=== PATIENT | female | born 1995 | race Caucasian/White ===

== ENCOUNTER 2021-09-20 16:26 | Outpatient (CLI) | payer OTHER, SELFPAY ==
[2021-09-20 17:04] LABS: Basophils Percent Auto 0.5 % (0.2-1.2); Eosinophils Absolute Auto 0.1 K/mm3 (0-0.3); Eosinophils Percent Auto 0.8 % (0-4.4); Hematocrit 40.7 % (37.0-47.0); Hemoglobin 14.1 g/dL (12.0-15.0); Immature Granulocyte Absolute 0.02 K/mm3 (0.00-0.031); Immature Granulocyte Percent A 0.3 % (0-0.5); Lymphocytes Absolute Auto 1.98 K/mm3 (0.9-3.2); Lymphocytes Percent Auto 24.8 % (18.3-44.2); Mean Corpuscular HGB Conc 34.6 g/dl (32-36); Mean Corpuscular Hemoglobin 29.6 pg (26-34); Mean Corpuscular Volume 85.5 fl (80-100); Mean Platelet Volume 10.1 fl (7.4-10.4); Monocytes Absolute Auto 0.5 K/mm3 (0.1-0.6); Monocytes Percent Auto 6.1 % (2.6-8.5); Neutrophils Absolute Auto 5.4 K/mm3 (1.3-6.7); Neutrophils Percent Auto 67.5 % (45.5-73.1); Platelet Count Result 221 k/mm3 (150-375); Red Blood Count 4.76 M/mm3 (4.2-5.4); Red Cell Distribution Width 12.7 % (11.5-14.5)
[2021-09-20 17:53] LABS: HIV 1/2 Ab P24 Ag Result Negative (Negative)
[2021-09-20 19:42] LABS: Hepatitis B Surface Antigen Negative (Negative)
[2021-09-20 20:10] LABS: Rubella IgG Antibody > 120.0 IU/ML
[2021-09-21 06:02] LABS: Rapid Plasma Reagin Non-Reactive (NonReactive)
[2021-09-22 16:04] LABS: CMV IgG Antibody <0.60 U/mL (<0.60)
[2021-09-24 12:03] LABS: Varicella IgG Antibody >4000.00 Index (>=165.00)
[2021-09-29 15:39] LABS: SMA 2.0 RISK VARIANT NOT DETECTED
[2021-09-29 17:22] LABS: CF Result NEGATIVE (NEGATIVE); Ethnicity NG
[2021-10-03 13:45] LABS: SMA Results Received Yes
== END 2021-09-20 16:27 | disposition home or self-care (01) ==
LOC: ANHLAB 16:34
PROVIDERS: PCP Family Medicine; Visit Provider Obstetrics & Gynecology
DX: N94.89 Other specified conditions associated with female genital organs and menstrual cycle (principal)
CPT/HCPCS: 36415; 81220; 81329; 84702; 85025; 86592; 86644; 86703; 86747; 86762; 86787; 86850; 86900; 86901; 87086; 87088; 87340; G0432

== ENCOUNTER 2021-11-01 12:24 | Outpatient (CLI) | payer OTHER, SELFPAY ==
[2021-11-17 14:25] LABS: IVFPREG? No
== END 2021-11-01 12:25 | disposition home or self-care (01) ==
LOC: ANHLAB 12:26
PROVIDERS: PCP Family Medicine; Visit Provider Obstetrics & Gynecology
DX: Z34.90 Encounter for supervision of normal pregnancy, unspecified, unspecified trimester (principal)
CPT/HCPCS: 36415; 82105; 82677; 84702; 86336

== ENCOUNTER 2022-05-14 13:38 | Observation (INO) | payer BC, SELFPAY ==
[2022-05-14 17:28] VITALS: BMI 26.6
--- NOTE | 2022-05-14 17:28 | OBADM ---
This patient, Yane Mccoy, admitted to the OB room Labor/Delivery/Recovery 104 for observation. Patient/family oriented to hospital policies and general routines including ID bracelet, bed and alarms, visiting hours, pain management, procedures, bathroom and other care routines, personal items, smoking policy, room service/diet, and visiting hours. Patient/Family are encouraged to report perceived risks to care and to ask questions if they do not understand what they are told or what they should do.
--- NOTE | 2022-05-15 15:25 | PM.OBTRLD ---
OB - Triage/Final Diagnosis Visit Information Reason for evaluation: threatened labor Comments/Additional reasons for admission: I have assessed the risk for this patient, Yane Mccoy, and determined that she would benefit from observation care.
== END 2022-05-14 16:30 | disposition home or self-care (01) ==
PROVIDERS: Admitting Provider Obstetrics & Gynecology; PCP Family Medicine; Visit Provider Obstetrics & Gynecology
DX: O47.1 False labor at or after 37 completed weeks of gestation (principal); Z3A.40 40 weeks gestation of pregnancy
CPT/HCPCS: G0378; G0379

== ENCOUNTER 2022-05-14 22:24 | Inpatient (IN) | payer BC, SELFPAY ==
[2022-05-15] VITALS (170 sets, daily range): BP systolic 77–140; BP diastolic 39–99; PULSE 87–180; RESP 16–18; TEMP 36.6–38.7; O2SAT 96–100; BMI 26.6
[2022-05-15] MEDS: fentaNYL CITRATE INJ (*CRX) 100 MCG/2 ML VIAL 50 MCG IV PUSH ×2 (01:42→02:51)
[2022-05-15 01:43] LABS: Basophils Percent Auto 0.3 % (0.2-1.2); Eosinophils Percent Auto 0.1 % (0-4.4); Hematocrit 39.8 % (37.0-47.0); Hemoglobin 13.3 g/dL (12.0-15.0); Immature Granulocyte Absolute 0.05 K/mm3 (0.00-0.031); Immature Granulocyte Percent A 0.4 % (0-0.5); Lymphocytes Absolute Auto 1.08 K/mm3 (0.9-3.2); Lymphocytes Percent Auto 7.9 % (18.3-44.2); Mean Corpuscular HGB Conc 33.4 g/dl (32-36); Mean Corpuscular Hemoglobin 30.4 pg (26-34); Mean Corpuscular Volume 91.1 fl (80-100); Mean Platelet Volume 10.8 fl (7.4-10.4); Monocytes Absolute Auto 1.1 K/mm3 (0.1-0.6); Monocytes Percent Auto 7.6 % (2.6-8.5); Neutrophils Absolute Auto 11.5 K/mm3 (1.3-6.7); Neutrophils Percent Auto 83.7 % (45.5-73.1); Platelet Count Result 205 k/mm3 (150-375); Red Blood Count 4.37 M/mm3 (4.2-5.4); White Blood Count 13.8 K/mm3 (4.5-10.0)
--- NOTE | 2022-05-15 02:14 | LDADM ---
This patient, Yane Mccoy, was admitted to Labor/Delivery/Recovery 104 on 05/14/22 at 22:24. Plans for labor, pain management and were discussed with patient. Patient/family oriented to hospital policies and general routines including ID bracelet, bed and alarms, visiting hours, pain management, procedures, bathroom and other care routines, personal items, smoking policy, room service/diet and guest tray routines, infant security routines, and visiting hours. Patient/Family are encouraged to report perceived risks to care and to ask questions if they do not understand what they are told or what they should do. See OBIX for further documentation.
[2022-05-15] MEDS: LACTATED RINGERS 1,000 ML 125 ML IV CONT ×5 (02:57→10:28)
--- NOTE | 2022-05-15 03:44 | WPDANESEPP ---
Anes - Eval Pre Procedure Procedure: labor epidural Date/Time: 05/15/22 03:44 Pre Op Diagnosis: Contractions Patient Data Age: 27 Gender: F Height: 1.63 m Weight: 70.5 kg Last Vital Signs Pulse 118 H 05/15/22 03:01 BP 119/67 05/15/22 03:01 O2 Del Method Room Air 05/15/22 02:14 Allergies Allergy/AdvReac Type Severity Reaction Status Date / Time No Known Allergies Allergy Mild Verified 05/14/22 10:13 Home Medications Medication Instructions Recorded Confirmed Type prenat.vits,beverly,[id number] 1 tablet PO DAILY 09/12/21 05/15/22 History famotidine 20 mg tablet (Pepcid) 20 mg PO DAILY PRN Acid Reflux 04/03/22 05/15/22 History Laboratory Tests 05/15/22 05/15/22 05/15/22 01:30 01:30 01:30 WBC 13.8 K/mm3 H K/mm3 (4.5-10.0) RBC 4.37 M/mm3 M/mm3 (4.2-5.4) Hgb 13.3 g/dL g/dL (12.0-15.0) Hct 39.8 % % (37.0-47.0) MCV 91.1 fl fl (80-100) MCH 30.4 pg pg (26-34) MCHC 33.4 g/dl g/dl (32-36) RDW 14.0 % % (11.5-14.5) Plt Count 205 k/mm3 k/mm3 (150-375) MPV 10.8 fl H fl (7.4-10.4) Immature Gran % (Auto) 0.4 % % (0-0.5) Neut % (Auto) 83.7 % H % (45.5-73.1) Lymph % (Auto) 7.9 % L % (18.3-44.2) [place] % (Auto) 7.6 % % (2.6-8.5) Eos % (Auto) 0.1 % % (0-4.4) Baso % (Auto) 0.3 % % (0.2-1.2) Lymph # (Auto) 1.08 K/mm3 K/mm3 (0.9-3.2) [place] # (Auto) 1.1 K/mm3 H K/mm3 (0.1-0.6) Eos # (Auto) 0.0 K/mm3 K/mm3 (0-0.3) Baso # (Auto) 0.0 K/mm3 K/mm3 (0.0-0.1) Abs Immat Gran (auto) 0.05 K/mm3 H K/mm3 (0.00-0.031) Absolute Neuts (auto) 11.5 K/mm3 H K/mm3 (1.3-6.7) Absolute Nucleated RBC 0.0 K/mm3 K/mm3 (0.0-0.012) Nucleated RBC % 0.0 % % (0.0-0.2) RPR Pending Blood Type A Positive Antibody Screen Negative Patient hx anesthesia problems: none Family hx anesthesia problems: none Results Review: All pre-operative results and documents have been reviewed as part of the pre-operative evaluation. [facility] Past Medical History Medical History BMI 20.0-20.9, adult Family History Family History Father Hypertension Grandparent Family history of malignant neoplasm of breast Mother No problems noted. Sibling No problems noted. 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
[2022-05-15] MEDS: PHENYLEPHRINE 1,000 MCG/10 ML SYRINGE 100 MCG IV PUSH ×4 (04:17→05:04)
[2022-05-15] MEDS: ONDANSETRON INJ 4 MG/2 ML VIAL IV PUSH (05:03)
[2022-05-15] MEDS: OXYTOCIN 30 UNITS/NS 500 ML 30 UNITS/500 ML BAG IV CONT (09:48)
[2022-05-15 09:50] LABS: Rapid Plasma Reagin Non-Reactive (NonReactive)
--- NOTE | 2022-05-15 11:57 | WPDHPUPDATE1 ---
History and Physical Update Update Date/Time: 05/15/22 11:57 History and Physical has been reviewed, including an updated exam of the patient. There are NO changes in the patient's condition. Risks, benefits, and alternatives have been discussed and questions answered. Patient agrees to proceed with procedure.
--- NOTE | 2022-05-15 11:57 | WPDOBADMIT ---
Obstetrics - Admit Note Admission Note: record reviewed. No pertinent additions to the history and/or any subsequent changes in the physical findings that are not consistent with the expected course of the were found. Additions to the history and/or subsequent changes in the physical findings follow. None.
--- NOTE | 2022-05-15 11:57 | PM.OBPRVD ---
OB - Delivery Note Procedure Intrapartal Events: Other (meconium stained amniotic fluid) Induction method: None Delivery augmentation: Rupture of Membranes and Pitocin Delivery monitor: External FHT and External Uterine Route of delivery: Episiotomy description: None Laceration Description: Vaginal Delivery repair: chromic Specimen: Yes Quantitative Blood Loss (ml): 300 Anesthesia type: Epidural Disposition: Floor Complications: none Narrative: Patient prepped draped usual manner for this procedure. Maternal expulsive efforts readily delivered vertex over intact perineum. Rest of baby was delivered without difficulty cord clamped cut and placenta delivered spontaneously. Cervix vagina vulva were inspected with vaginal wall laceration noted. This was rendered hemostatic and approximated using 2-0 chromic in a running interlocking manner. Uterus was well contracted. There were some small areas of oozing from minimal lacerations. Packing was placed in be removed [id number]. At this point the procedure was considered terminated with the immediate postoperative condition mother baby both excellent. [place] Baby Weeks of gestation at delivery: 40 Infant gender: Female Weight (pounds): 8 Weight (ounces): 5 presentation: vertex Placenta delivery description: Spontaneous Cord Vessel Description: 3 Vessels score one minute: 8 score five minutes: 9 AMG Delivery Billing Delivery Delivery: Delivery Charge
[2022-05-15] MEDS: OXYTOCIN 30 UNITS/NS 500 ML 30 UNITS/500 ML BAG 125 UNITS IV CONT (12:13)
[2022-05-15] MEDS: WITCH HAZEL 40 PADS 1 PAD TOPICAL (13:52)
[2022-05-15] MEDS: BENZOCAINE 20% AER SPR (*SP) 56 GM CAN 1 SPRAY TOPICAL (13:53)
[2022-05-15] MEDS: ACETAMINOPHEN 325 MG TABLET 650 MG PO (14:50)
--- NOTE | 2022-05-15 16:03 | PC.NURSE ---
[id number] Introductions were made, then consulted with patient to assess needs related to . Mother led the conversation with her?plans to feed?her infant and the?experience so far. Resources provided for inpatient and outpatient services with the feeding sheet, mom/baby guide and name written on the white board. Mother voiced understanding of information and requested assistance. Mother works well with her with encouragement and education. Encouraged understanding of the benefits of skin to skin (demonstrating unwrapping infant and placing upright on her chest), stimulating with massage touch, changing positions to encourage wakefulness, how to watch for early feeding cues, responsive feeding, feeding on demand (aiming for 8-12 times in 24 hours, about every 2-3 hours), milk production, building/maintaining a milk supply, duration of feeding, signs of adequate intake/output and how to record on the feeding sheet. Reviewed positioning and ear, shoulder, hip alignment, supporting the breast to facilitate a deep latch, asymmetrical latch (off-center), leading with the chin with a big, open, wide gape and body close to mother. Infant latched optimally to the left breast in football position. Education given to mother of how to visualize suck/swallow ratios and listen for drinking at the breast. was able to maintain latch without discomfort to mother. Nipple care reviewed with optimal latch and good positioning. Reminding mother of comfort measures of healing with a warm and wet washcloth to rinse breast, then leave open to air-dry as needed. Reviewed positioning and ear, shoulder, hip alignment, supporting the breast to facilitate a deep latch, asymmetrical latch (off-center), leading with the chin with a big, open, wide gape and body close to mother. Infant latched optimally to the right breast in football position. Suck/swallow ratios were visualized and heard. Reviewed good handwashing when or touching the breast/nipples to prevent infection. Resources used to facilitate learning were used with the visual handouts, tool, mom and baby guide. Mother voiced understanding of skin to skin, stimulating with massage touch, responsive feedings, talking to infant to encourage if it has been 2 -2.5 hours since the start of the last , to call if infant does not latch, or if there is discomfort with . Mother voiced understanding of information, demonstrated learning and will call if there is a request for assistance. Reported to the primary RN.
[2022-05-15] MEDS: IBUPROFEN SUSPENSION 200 MG/10 ML UDC 600 MG PO (20:25)
[2022-05-15] MEDS: BENZOCAINE/MENTHOL (*BKC) 18 EA LOZENGE 1 LOZENGE PO (22:58)
[2022-05-16 00:08] VITALS: BP 106/64; PULSE 72; RESP 18; TEMP 36.6; O2SAT 98
[2022-05-16 04:41] LABS: Hematocrit 34.8 % (37.0-47.0); Hemoglobin 11.6 g/dL (12.0-15.0)
[2022-05-16 04:42] VITALS: BP 96/62; PULSE 78; RESP 18; TEMP 36.6; O2SAT 99
[2022-05-16 07:55] VITALS: BP 107/74; PULSE 91; RESP 16; TEMP 36.7; O2SAT 99
[2022-05-16] MEDS: LORATADINE 10 MG TABLET PO (08:14)
[2022-05-16] MEDS: IBUPROFEN SUSPENSION 200 MG/10 ML UDC 600 MG PO ×3 (08:15→22:30)
--- NOTE | 2022-05-16 08:58 | WPDANLDPN2 ---
Anes-Prog Note L&D Date/Time: 05/16/22 08:58 Comfortable throughout: labor and delivery Neuraxial method: epidural Epidural/Spinal procedure site: clean & non-tender Neuro status: Neuro function grossly intact. Cardiovascular status: normal Respiratory status: normal Airway patency: baseline Mental status: baseline Post-Op hydration status: normal Vital Signs: Last Vital Signs Temp 98 F 05/16/22 04:42 Pulse 78 05/16/22 04:42 Resp 18 05/16/22 04:42 BP 96/62 L 05/16/22 04:42 Pulse Ox 99 05/16/22 04:42 O2 Del Method Room Air 05/15/22 20:45 Pain score (VAS): 0 Post-procedural complaints: none Patient feedback: Patient satisfied with anesthetic care.
[2022-05-16 21:00] VITALS: BP 126/76; PULSE 91; RESP 18; TEMP 37.1; O2SAT 98
[2022-05-16] MEDS: DEXTROMETHORPHAN POLISTIREX 60 MG/10 ML SYRINGE PO (22:30)
--- NOTE | 2022-05-17 07:28 | PM.OBDSVD ---
DS: Admitting Diagnosis Discharge Date 05/17/2022 Admitting Diagnosis DS: Discharge Diagnosis Discharge Diagnosis (1) , delivered: Code(s): O80 - Encounter for full-term uncomplicated delivery Status: Acute OB - DS: Summary OB Procedures : None OB Procedures Intrapartum: Spontaneous Vag Delivery OB Procedures: : None Time Spent with Patient Time attestation: Total time spent providing and/or coordinating discharge services: DS: Data Data Completed and Pending Pending studies at discharge: Pending at discharge 05/15/22 11:42 Surgical [PTH] Routine Discharge Plan Discharge Discharging Clinician: Jonatan Quiroz Patient Disposition: Home, Self-Care Activity: as tolerated Diet: as tolerated Patient Instructions: Antibiotic Form Stand Alone Forms: General Discharge Information Follow-up/Referrals: Jonatan Quiroz MD [Physician] - 3 Weeks Discharge Medications: New azithromycin 250 mg tablet See Rx Instructions .ROUTE .COMPLEX Qty: 6 0RF Rx Instructions: For 250 mg dose pack: take 500 mg today (day 1), then 250 mg for 4 days (days 2-5) ibuprofen 100 mg/5 mL Suspension 600 mg PO Q6H PRN (Reason: Pain Rated 1-3) Qty: 30 0RF Continued famotidine [Pepcid] 20 mg tablet 20 mg PO DAILY PRN (Reason: Acid Reflux) prenat.vits,beverly,[id number] Tablet 1 tablet PO DAILY Date of admission: 05/14/22 22:24 Primary Care Provider: Kuldip Arredondo Admitting Provider: Jonatan Quiroz Attending physician on admission: Jonatan Quiroz Condition: Stable
[2022-05-17 07:50] VITALS: BP 113/68; PULSE 90; RESP 16; TEMP 37.7; O2SAT 99
[2022-05-17] MEDS: LORATADINE 10 MG TABLET PO (08:34)
[2022-05-17] MEDS: IBUPROFEN SUSPENSION 200 MG/10 ML UDC 600 MG PO (08:34)
--- NOTE | 2022-05-17 10:21 | PC.NURSE ---
Patient viewed the discharge video Mother & Baby Care, The First Two Weeks . Patient was given the opportunity and encouraged to ask questions. Patient verbalized understanding of information shared and has been given the mother/baby guide for home reference.
[2022-05-17] MEDS: DEXTROMETHORPHAN POLISTIREX 60 MG/10 ML SYRINGE PO (10:47)
--- NOTE | 2022-05-17 12:14 | PC.NURSE ---
[id number] Mother led the conversation with her experience and plan to feed her so far and her ability to continue with the plan of attempting to breastfeed, pump, supplement to feed infant. Mother states she didn't pump last night and bottle fed through the night. Reviewed milk production with effectively or pumping to protect the milk supply. Mother requested a pump flange assessment. We discussed how her needs may cell changer the next few days. Reminded parents to use good handwashing technique to prevent infection. Mother is feeding appropriately for growth of infant and understands stimulating to eat if needed. Infant has had appropriate feedings in the last 24 hours meets the outcomes for weight, output and jaundice at this time. Mother states she is confident to continue to attempt effectively , pumping and supplementing with pumped breastmilk or formula for her infant at home. Reinforced understanding of milk production, transition of milk, signs of adequate intake, transition of stool, prevention/relief of engorgement, responsive watching for feeding cues, the different methods of stimulating to breastfeed 2-3 hours after the start of the last feeding, community resources, medication information reviewed per [facility] and when to call a provider using the resource of the mom and baby guide/[facility] website. Mother voiced understanding of the education shared. [phone] Mother pumped 10mls of breastmilk to feed to her after the next attempt to the breast. Flange fit was assessed and 24 mm is adequate. We discussed how the breast, flanges and needs may cell changer the next few days. Mother voiced when to call for assistance and denies any additional assistance or education at this time. Mother states she has a resource [facility] [facility] that she can contact for assistance and mother was reminded of [place]'s outpatient resources as well. Reported to the primary RN.
[2022-05-18 11:35] VITALS: BP 117/78; PULSE 92; RESP 18; TEMP 37.3; O2SAT 100
== END 2022-05-17 12:53 | disposition home or self-care (01) | DRG 806 ==
LOC: ANHLDR 05-15 00:38 → ANHOB2 05-15 14:17
PROVIDERS: Obstetrics & Gynecology; Admitting Provider Obstetrics & Gynecology; PCP Family Medicine; Visit Provider Obstetrics & Gynecology
DX: O77.0 Labor and delivery complicated by meconium in amniotic fluid (principal); O71.4 Obstetric high vaginal laceration alone; Z37.0 Single live birth; O75.2 Pyrexia during labor, not elsewhere classified; Z3A.40 40 weeks gestation of pregnancy
CPT/HCPCS: 36415; 85014; 85018; 85025; 86592; 86850; 86900; 86901; 88307; A9270; J2370; J2405; J2590; J2795; J3010; J7120

== ENCOUNTER 2022-08-15 14:16 | Outpatient (CLI) | payer BC, SELFPAY ==
--- NOTE | 2022-08-17 14:39 | WPDHOLTEREM ---
Holter/Event Monitor Holter/Event Monitor Date of procedure: 08/15/22 Holter/Event Procedure: 24 Hr Holter Monitor Indications: Bradycardia Conclusion: 1. 24 hour holter monitor on 08/15/22. 2. Underlying rhythm is sinus rhythm. HR range 40-138 bpm; average HR 68 bpm. 3. There are 2 premature supraventricular complexes. No supraventricular tachycardia. 4. No premature ventricular complexes. No ventricular tachycardia. 5. No sinoatrial or atrioventricular blocks. No significant pauses greater than 2 seconds. 6. Patient reports symptoms of headache, lightheadedness, and sternum pain which demonstrate sinus rhythm, HR range 67-82 bpm.
== END 2022-08-15 14:17 | disposition home or self-care (01) ==
LOC: ANHCARD 14:18
PROVIDERS: PCP Family Medicine; Visit Provider Nurse Practitioner Family
DX: R00.1 Bradycardia, unspecified (principal)
CPT/HCPCS: 93225; 93226

== ENCOUNTER 2023-04-26 15:15 | Outpatient (RCR) | payer BC, SELFPAY ==
--- NOTE | 2023-03-20 16:22 | OPREHPOC ---
Outpatient Therapy Plan of Care This is a Multidisciplinary Plan of Care that may contain components documented by all disciplines (PT, OT, and ST.) PT Problem 1 PT Problem #1 Knowledge Deficit PT Goal 1 Goal Pt to be IND with issued HEP Target Visit 8 PT Problem 2 PT Problem #2 Pain PT Goal 1 Goal Pt to report no pelvic pain in the last week. Target Visit 8 PT Goal 2 Goal Pt to report 75% improvement in overall symptoms. Target Visit 8 PT Problem 3 PT Problem #3 Impaired Strength PT Goal 1 Goal pt to improve hip strength to grossly 4+/5 Target Visit 8 PT Goal 2 Goal Pt to be able to hold supine 90-90 position for 30s. Target Visit 8 PT Problem 4 PT Problem #4 Impaired Functional Mobil PT Goal 1 Goal Pt to be able to lift and carry 20lb from ground level without an increase in symptoms Target Visit 8
--- NOTE | 2023-03-20 16:22 | PTOPEVAL1 ---
Assessment and note entered by Tracy Rivera, PT, DPT Evaluation Information Assessment Status Evaluation Diagnosis anterior rib pain Subjective Information Pt reports hip, L foot, R jaw, and R anterior rib pain. Pt reports upper anterior rib pain that started early in her about a year and a half ago. She is currently 10 months post . She reports intermittent pain, it increases with coughing, bending forward, and with palpation. Reported Pain Level Pain Score 0: Self Report Assessment PT Clinical Summary Yane presents to therapy today for her initial evaluation with a diagnosis of rib pain. Today she demonstrates hypermobility throughout her spinal and BLEs. She demonstrates decreased hip and pelvis stability as well as decreased core strength. Skilled therapy services are indicated to improve functional stability, body mechanics, and functional mobility. Plan of Care Interventions Gait Training,Manual Therapy,Neuro Re-education, Patient/Caregiver Educati,Therapeutic Activities, Therapeutic Exercise PT Services Indicated Yes Treatment Frequency and 2x/wk for 8 visits Duration These treatments will address the objective and functional deficits as defined above. The patient will be advanced safely and appropriately in order for the patient to progress towards his/her prior level of function. Additional exercises will be introduced and as well as a comprehensive home exercise program upon discharge, if needed, ?to ensure carryover of functional gains achieved in the clinic. This treatment plan has been reviewed and agreement upon by the patient.
--- NOTE | 2023-04-16 16:51 | PCPTNOTE ---
Patient called to cancel due to illness.
--- NOTE | 2023-04-18 13:42 | PCPTNOTE ---
Patient called & cancelled scheduled appointment this date due to being ill. She has been rescheduled.
--- NOTE | 2023-04-26 16:10 | PTOPDC ---
Assessment and note entered by Tracy Rivera, PT, DPT Evaluation Information Assessment Status Discharge Diagnosis anterior rib pain Subjective Information Pt states thinks are going well overall. She states she has not had much pain. She reports a little discomfort when coughing but not with day to day tasks. Reported Pain Level Pain Score 0: Self Report Assessment PT Clinical Summary Yane presents to therapy today for her progress report following 8 visits of skilled therapy to treat her diagnosis of rib pain. Today she reports no pain in the last week and no pain with functional mobility. She has met all of her therapy goals and no longer requires skilled therapy services. She will be discharged at this time. Plan of Care PT Services Indicated No
== END 2023-04-29 08:09 | disposition home or self-care (01) ==
LOC: ANHGOSHPT 15:15
PROVIDERS: PCP Family Medicine; Visit Provider Nurse Practitioner Family
DX: M94.0 Chondrocostal junction syndrome [Tietze] (principal)
CPT/HCPCS: 97110; 97161; 97530

== ENCOUNTER 2023-05-13 12:19 | Emergency (ER) | payer BC, SELFPAY ==
[2023-05-13 12:54] VITALS: BP 104/79; PULSE 96; RESP 18; TEMP 37.4; O2SAT 98
--- NOTE | 2023-05-13 13:34 | ED.URI ---
HPI - URI/Sore Throat General Chief Complaint: Upper Respiratory Infection Stated Complaint: Sore Throat;Congestion Time Seen by Provider: 05/13/23 13:26 Patient presents today complaining of a 2 day history of sore throat and mild congestion. Denies any additional symptoms. Currently rates her pain 2/10 and has been taking DayQuil with some relief. Denies any known sick contacts. Source: patient and RN notes reviewed Mode of arrival: ambulatory Limitations: no limitations Related Data Home Medications Medication Instructions Recorded Confirmed No Home Medications 05/13/23 05/13/23 Allergies Allergy/AdvReac Type Severity Reaction Status Date / Time No Known Allergies Allergy Mild Verified 05/13/23 12:48 Review of Systems Review of Systems: CONSTITUTIONAL: Denies body aches, fever, chills, or sweats. EYES: Denies visual changes, redness, or discharge. ENT: Denies rhinorrhea, or otalgia.+ sore throat, mild congestion CARDIOVASCULAR: Denies chest pain, palpitations, or edema. RESPIRATORY: Denies cough or dyspnea. GASTROINTESTINAL: Denies abdominal pain, nausea, vomiting, or diarrhea. GENITOURINARY: Denies dysuria or hematuria. SKIN: Denies rash, itching, or wounds. MUSCULOSKELETAL: Denies back pain, joint pain, or myalgia. NEUROLOGIC: Denies headache, numbness, tingling, or weakness. PSYCH: Denies depression or anxiety. [facility] Past Medical History Medical History BMI 20.0-20.9, adult BMI 22.0-22.9, adult Family History Family History Father Hypertension Grandparent Family history of malignant neoplasm of breast Mother No problems noted. Sibling No problems noted. 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 Please see nursing chart for further information. There is no relevant family history pertinent to the presenting complaint Exam Narrative: GENERAL: Well-appearing, well-nourished, and in no acute distress. HEAD: Normocephalic, atraumatic. EYES: EOMI. No redness or drainage. Conjunctivae normal. ENT: Mucous membranes pink and moist. Nares clear. No rhinorrhea. TMs normal bilaterally. Throat mildly erythematous without edema or exudate. Uvula midline. NECK: Normal AROM. Supple. No lymphadenopathy. CHEST: No respiratory distress. Clear to auscultation. HEART: Regular rate and rhythm. No murmur appreciated. EXTREMITIES: Normal range of motion. No edema. SKIN: Warm, dry, no rash. Capillary refill normal. Normal skin turgor. NEURO: No focal deficits. Alert and oriented x3. Gait steady. PSYCH: Normal affect. No signs of depression or anxiety. Course Course Level of Care: Express Care Visit Vital Signs Vital signs: Vital Signs Temperature 99.3 F 05/13/23 12:54 Pulse Rate 96 05/13/23 12:54 Respiratory Rate 18 05/13/23 12:54 Blood Pressure 104/79
== END 2023-05-13 13:44 | disposition home or self-care (01) ==
PROVIDERS: Emergency Provider Nurse Practitioner; PCP Family Medicine
DX: J02.9 Acute pharyngitis, unspecified (principal)
CPT/HCPCS: 87081; 87880; 99213; G0463

== ENCOUNTER 2023-05-19 09:15 | Emergency (ER) | payer BC, SELFPAY ==
[2023-05-19 09:21] VITALS: BP 118/74; PULSE 71; RESP 16; TEMP 36.6; O2SAT 100
--- NOTE | 2023-05-19 09:32 | ED.SKABFB ---
HPI - Skin/Abscess/Foreign Bdy General Chief complaint: Skin/Abscess/Foreign Body Stated complaint: Hives all over Time Seen by Provider: 05/19/23 09:27 Source: patient and RN notes reviewed Mode of arrival: ambulatory Limitations: no limitations History of Present Illness HPI narrative: Patient presents today with scattered hives that started last night around 8:00 p.m.. States the started on her eyelids and has spread to her ears, palms of her hands, ankles, knees. Denies shortness of breath, difficulty swallowing, scratchy throat, lip swelling. She tried Claritin last night without relief. She denies any new exposures, household products, medications, plantar animal exposures. She had recently has been ill with a viral pharyngitis that has been improving. Related Data Allergies Allergy/AdvReac Type Severity Reaction Status Date / Time No Known Allergies Allergy Mild Verified 05/19/23 09:18 Review of Systems Review of Systems: CONSTITUTIONAL: Denies body aches, fever, chills, or sweats. EYES: Denies visual changes, redness, or discharge. ENT: Denies rhinorrhea, congestion, sore throat, or otalgia. CARDIOVASCULAR: Denies chest pain, palpitations, or edema. RESPIRATORY: Denies cough or dyspnea. GASTROINTESTINAL: Denies abdominal pain, nausea, vomiting, or diarrhea. GENITOURINARY: Denies dysuria or hematuria. SKIN:+ hives MUSCULOSKELETAL: Denies back pain, joint pain, or myalgia. NEUROLOGIC: Denies headache, numbness, tingling, or weakness. PSYCH: Denies depression or anxiety. [facility] Past Medical History Medical History BMI 20.0-20.9, adult BMI 22.0-22.9, adult Family History Family History Father Hypertension Grandparent Family history of malignant neoplasm of breast Mother No problems noted. Sibling No problems noted. 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 Please see nursing chart for further information. There is no relevant family history pertinent to the presenting complaint Exam Narrative: GENERAL: Well-appearing, well-nourished, and in no acute distress. HEAD: Normocephalic, atraumatic. EYES: EOMI. No redness or drainage. Conjunctivae normal. ENT: Mucous membranes pink and moist. Nares clear. No rhinorrhea. Throat normal. Uvula midline. NECK: Normal AROM. CHEST: No respiratory distress. Clear to auscultation. HEART: Regular rate and rhythm. No murmur appreciated. EXTREMITIES: Normal range of motion. No edema. SKIN: Warm, dry. Capillary refill normal. Normal skin turgor. Tiny urticaria rash that has coalesced and patches to the bilateral ankles, left knee, bilateral [place], left ear, bilateral eyelids, forehead. No facial swelling noted. NEURO: No focal deficits. Alert and oriented x3. Gait steady. PSYCH: Normal affect. No signs of depression or anxiety. Course
== END 2023-05-19 09:37 | disposition home or self-care (01) ==
PROVIDERS: Emergency Provider Nurse Practitioner; PCP Family Medicine
DX: L50.9 Urticaria, unspecified (principal)
CPT/HCPCS: 99213; G0463

== ENCOUNTER 2023-08-05 19:47 | Emergency (ER) | payer BC, SELFPAY ==
--- NOTE | ~2023-08-05 | US_ITS ---
Pelvic ultrasound. Clinical History: First trimester , vaginal bleeding Technique: Realtime transabdominal and transvaginal scanning of the pelvis was performed. Color flow Doppler and Doppler spectral analysis were performed. Findings: The uterus is anteverted. The endometrial stripe is diffusely thickened to 18 mm, relative ly hyperechoic. There is a probable mildly irregular gestational sac at the lower uterine segment, or possibly cervix, with estimated gestational age of 5 weeks 5 days based on average sac diameter of 1 cm. No well-formed pole evident. The right ovary measures 3.2 x 1.6 x 2.1 cm. No significant right ovarian or adnexal mass is seen. The left ovary measures 2.0 x 1.2 x 1.5 cm. No significant left ovarian or adnexal mass is seen. There is no evidence of free fluid in the cul de sac. Impression: Thickened endometrial stripe with early gestational sac at the lower uterine segment or possibly cerv ix, with estimated gestational age of 5 weeks 5 days by sac diameter. Appearance overall suggests abo rtion in progress. Early normal felt to be relatively unlikely. Correlate clinically. Otis nued follow-up with serial beta hCG, and repeat ultrasound as warranted, is advised. Reviewed, dictated and finalized at location M. Impression: Thickened endometrial stripe with early gestational sac at the lower uterine se gment or possibly cervix, with estimated gestational age of 5 weeks 5 days by s ac diameter. Appearance overall suggests in progress. Early normal pre gnancy felt to be relatively unlikely. Correlate clinically. Continued follow-u p with serial beta hCG, and repeat ultrasound as warranted, is advised.
[2023-08-05 19:48] VITALS: BP 128/67; PULSE 76; RESP 20; TEMP 36.8; O2SAT 100
[2023-08-05 20:14] LABS: Basophils Percent Auto 0.5 % (0.2-1.2); Eosinophils Absolute Auto 0.1 K/mm3 (0-0.3); Eosinophils Percent Auto 0.6 % (0-4.4); Hematocrit 40.3 % (37.0-47.0); Hemoglobin 13.5 g/dL (12.0-15.0); Immature Granulocyte Absolute 0.02 K/mm3 (0.00-0.031); Immature Granulocyte Percent A 0.2 % (0-0.5); Lymphocytes Absolute Auto 1.96 K/mm3 (0.9-3.2); Lymphocytes Percent Auto 22.5 % (18.3-44.2); Mean Corpuscular HGB Conc 33.5 g/dl (32-36); Mean Corpuscular Hemoglobin 29.6 pg (26-34); Mean Corpuscular Volume 88.4 fl (80-100); Mean Platelet Volume 10.2 fl (7.4-10.4); Monocytes Absolute Auto 0.4 K/mm3 (0.1-0.6); Monocytes Percent Auto 4.4 % (2.6-8.5); Neutrophils Absolute Auto 6.3 K/mm3 (1.3-6.7); Neutrophils Percent Auto 71.8 % (45.5-73.1); Platelet Count Result 233 k/mm3 (150-375); Red Blood Count 4.56 M/mm3 (4.2-5.4); Red Cell Distribution Width 13.4 % (11.5-14.5); White Blood Count 8.7 K/mm3 (4.5-10.0)
[2023-08-05 20:23] LABS: Alanine Aminotransferase 17 U/L (6-35); Albumin Level 4.8 g/dL (3.5-5.1); Alkaline Phosphatase 47 U/L (38-126); Anion Gap 10 mmol/L (4-12); Aspartate Amino Transferase 23 U/L (14-36); Bilirubin,Total 0.8 mg/dL (0.2-1.3); Blood Urea Nitrogen 17 mg/dL (7-17); Calcium 9.4 mg/dL (8.4-10.2); Carbon Dioxide 22 mmol/L (22-30); Chloride 106 mmol/L (98-107); Estimated CRCL calculation 88 ml/min; Estimated Glomerular Filt Rate > 60; Glucose 135 mg/dL (65-110); Potassium 3.5 mmol/L (3.4-5.0); Sodium 138 mmol/L (137-145)
[2023-08-05 20:24] LABS: INR 1.1; Prothrombin Time 14.3 Seconds (11.1-14.7)
--- NOTE | 2023-08-05 21:07 | ED.PREGNANCY ---
HPI - General Chief complaint: Vaginal Bleeding Stated complaint: vaginal bleeding, 8-10 weeks Time Seen by Provider: 08/05/23 20:22 Source: patient Mode of arrival: ambulatory Limitations: no limitations History of Present Illness HPI Narrative: This is a 28 year old female that presents to the ER for vaginal bleeding. Reports she is about 10 weeks . She started to have spotting this morning which has progressed to heavy bleeding with clots tonight which prompted her to be seen. Her OB is Dr. Quiroz. She has not had an US yet this . Denies fevers or vomiting. Related Data Home Medications Medication Instructions Recorded Confirmed docosahexaenoic acid 200 mg mg PO 07/16/23 07/16/23 capsule ( DHA) Allergies Allergy/AdvReac Type Severity Reaction Status Date / Time No Known Allergies Allergy Mild Verified 07/16/23 15:47 Review of Systems Review of Systems: CONSTITUTIONAL: Denies fever GASTROINTESTINAL: Denies abdominal pain, nausea, vomiting All systems reviewed & are unremarkable except as noted in HPI and below PMFSH Past Medical History Medical History (Updated 08/06/23 @ 02:03 by Tari Mcnair PA-C) BMI 20.0-20.9, adult BMI 22.0-22.9, adult Family History Family History Father Hypertension Grandparent Family history of malignant neoplasm of breast Mother No problems noted. Sibling No problems noted. 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 HEAD: Normocephalic, atraumatic. EYES: EOMI. CHEST: No respiratory distress. HEART: Regular rate EXTREMITIES: Normal range of motion. No edema. SKIN: Warm, dry, no rash. NEURO: No focal deficits. Alert and oriented x3. PSYCH: Normal mood and affect PELVIC: Normal external genitalia. Moderate amount of bright red blood in the vaginal vault. Passing clots and tissue Course Course Emergency Course: Patient updated on workup and agrees with plan of care Vital Signs Vital signs: Vital Signs Temperature 98.2 F 08/05/23 19:48 Pulse Rate 76 08/05/23 19:48 Respiratory Rate 20 08/05/23 19:48 Blood Pressure 128/67 08/05/23 19:48 Pulse Oximetry 100 08/05/23 19:48 Oxygen Delivery Room Air 08/05/23 19:48 Temperature 98.2 F 08/05/23 19:48 Pulse Rate 76 08/05/23 19:48 Respiratory Rate 08/05/23 19:48 Blood Pressure 128/67 08/05/23 19:48 Pulse Oximetry 100 08/05/23 19:48 Oxygen Delivery Room Air 08/05/23 19:48 MDM - OB/Uterine Contractions MDM Narrative Medical decision making narrative: Patient presents the emergency department for bleeding in first-trimester . She is afebrile and nontoxic appearing. Her vitals are stable. Hemoglobin is normal. Her quantitative beta-hCG is 12,741. Ultrasound shows a gestational sac, but no pole. Patient updated on workup and agrees with plan of care. Will be given order for repeat beta-hCG an
--- NOTE | 2023-08-05 22:44 | PC.NURSE ---
Assumed care of pt from RONAL Robison. Pt resting in bed awaiting US. Call light within reach.
--- NOTE | 2023-08-05 23:02 | PC.NURSE ---
pt to US at this time.
[2023-08-06 02:14] VITALS: BP 122/71; PULSE 72; RESP 19; O2SAT 100
== END 2023-08-06 02:16 | disposition home or self-care (01) ==
PROVIDERS: Emergency Provider Physician Assistant; PCP Family Medicine
DX: O20.0 Threatened abortion (principal); Z3A.01 Less than 8 weeks gestation of pregnancy
CPT/HCPCS: 36415; 76801; 76817; 80053; 84702; 85025; 85461; 85610; 85730; 86850; 86900; 86901; 99284

== ENCOUNTER 2023-08-07 10:49 | Outpatient (CLI) | payer BC, SELFPAY ==
--- NOTE | ~2023-08-07 | US_ITS ---
EXAMINATION: US OB <=14 wk fetus w TV DATE: 08/07/2023 11:20 INDICATION: Threatened . TECHNIQUE: Real-time transabdominal and transvaginal pelvic ultrasound was performed. COMPARISON: Ultrasound 08/05/2023 FINDINGS: TRANSABDOMINAL ULTRASOUND: The uterus measures 8.5 x 5.9 x 6.1 cm. TRANSVAGINAL ULTRASOUND: There are two 6 mm hypoechoic masses in the endometrial complex. The right ovary measures 2.6 x 2.7 x 2.2 cm. The left ovary measures 1.6 x 1.2 x 3.0 cm. There is no free fluid in the pelvis. IMPRESSION: 1. Two small hypoechoic masses in the endometrial complex, new from 08/05/23, most likely hematomas. The cyst in the endocervical canal seen on 08/05/2023 is no longer visible, most likely spontaneous ab ortion. Ectopic is not excluded. Correlate with quantitative beta-hCG. Reviewed, dictated and finalized at location A. IMPRESSION: 1. Two small hypoechoic masses in the endometrial complex, new from 08/05/23, m ost likely hematomas. The cyst in the endocervical canal seen on 08/05/2023 is n o longer visible, most likely spontaneous . Ectopic is not ex cluded. Correlate with quantitative beta-hCG.
== END 2023-08-07 10:50 ==
LOC: MICIMG 10:50
PROVIDERS: PCP Family Medicine; Visit Provider Obstetrics & Gynecology
DX: O20.0 Threatened abortion (principal)
CPT/HCPCS: 76801; 76817

== ENCOUNTER 2024-03-06 15:15 | Outpatient (CLI) | payer BC, SELFPAY ==
--- NOTE | ~2024-03-06 | US_ITS ---
EXAMINATION: US OB <=14 wk fetus w TV DATE: 03/06/2024 15:39 INDICATION: Encounter for supervision of normal . TECHNIQUE: Real-time transabdominal and transvaginal pelvic ultrasound was performed. COMPARISON: Ultrasound 08/07/2023 FINDINGS: TRANSABDOMINAL ULTRASOUND: The uterus measures 10.2 x 7.2 x 6.1 cm. TRANSVAGINAL ULTRASOUND: There is an intrauterine gestational sac. A yolk sac is identified. The fet al crown rump length measures 8 mm, which correlates with an estimated gestational age of 6 weeks and 5 day(s) (+/-) 4 day(s). heart motion is identified measuring 143 beats per minute (bpm) by M- mode Doppler. There is a 1.0 x 1.0 x 1.2 cm subchorionic hematoma. The ovaries are not visualized. Th ere is no free fluid in the pelvis. IMPRESSION: 1. Single living intrauterine gestation with estimated date of delivery of 10/25/2024. 2. Small subchorionic hematoma. Reviewed, dictated and finalized at location A. BOOK WRITER IMPRESSION: 1. Single living intrauterine gestation with estimated date of delivery of 10/16. 2. Small subchorionic hematoma.
== END 2024-03-06 15:16 | disposition home or self-care (01) ==
LOC: GOSHIMG 15:15
PROVIDERS: PCP Family Medicine; Visit Provider Obstetrics & Gynecology
DX: Z34.90 Encounter for supervision of normal pregnancy, unspecified, unspecified trimester (principal)
CPT/HCPCS: 76801; 76817

== ENCOUNTER 2024-03-07 19:40 | Emergency (ER) | payer BC, SELFPAY ==
[2024-03-07 19:45] VITALS: BP 104/70; PULSE 138; RESP 15; TEMP 36.8; O2SAT 100
[2024-03-07] MEDS: SODIUM CHLORIDE 0.9% IV 1,000 ML 999 ML IV CONT (20:00)
[2024-03-07] MEDS: ONDANSETRON INJ 4 MG/2 ML VIAL IV PUSH ×2 (20:00→22:58)
--- NOTE | 2024-03-07 20:08 | ED_ITS ---
HPI - General Adult General Chief complaint: Nausea/Vomiting/Diarrhea Stated complaint: nausea/ vomitting x7 weeks Time Seen by Provider: 03/07/24 19:47 History of Present Illness HPI narrative: 28-year-old female presents emergency department for evaluation for nausea vomiting and diarrhea. Patient is approximately 7 weeks . Patient has had some issues with morning sickness with this . Patient states she does have some sick contacts and there multiple family members who had similar illness last week. Patient believes she still has a viral illness and that her morning sickness is making this worse. Patient denies any vaginal bleeding vaginal discharge denies any associated abdominal pain. Patient's primary complaint is that she cannot keep any liquids down. Patient follows up with Dr. Quiroz Related Data Home Medications ?Medication ?Instructions ?Recorded ?Confirmed ?Last Taken ?Type docosahexaenoic acid 200 mg mg PO 07/16/23 02/17/24 Unknown History capsule ( DHA) Allergies Allergy/AdvReac Type Severity Reaction Status Date / Time No Known Allergies Allergy Mild Verified 03/07/24 19:40 Review of Systems 2 Review of Systems: All systems reviewed & are unremarkable except as noted in HPI and below PMFSH Past Medical History Medical History BMI 20.0-20.9, adult BMI 22.0-22.9, adult Family History Family History Father Hypertension Grandparent Family history of malignant neoplasm of breast Mother No problems noted. Sibling No problems noted. 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 HEAD: normocephalic, atraumatic. EYES: PERRLA/EOMI, conjunctivae clear. NOSE: Normal no drainage EARS:TMS clear with good light reflex. THROAT: Pharynx clear, no exudate. NECK: Supple. No adenopathy, no masses. RESPIRATORY: Airway patent, respirations nonlabored. Clear to auscultation bilaterally, no rales, rhonchi, wheezing. CARDIOVASCULAR: Regular rate and rhythm without murmurs rubs or gallops. ABDOMINAL: Soft, nontender, nondistended, normal bowel sounds MUSCULOSKELETAL: Moves all extremities. Strength/ROM intact, No edema, No calf tenderness. NEURO: Alert. Cranial nerves II through XII intact. grossly intact SKIN: Warm, dry. Normal Color Course Vital Signs Vital signs: Vital Signs Temperature 98.3 F 03/07/24 19:45 Pulse Rate 138 H 03/07/24 19:45 Respiratory Rate 15 03/07/24 19:45 Blood Pressure 104/70 03/07/24 19:45 Pulse Oximetry 100 03/07/24 19:45 Temperature 100.1 F H 03/07/24 23:01 Pulse Rate 83 03/07/24 23:01 Respiratory Rate 20 03/07/24 23:01 Blood Pressure 99/68 L 03/07/24 23:01 Pulse Oximetry 99 03/07/24 23:01 Medical Decision Making [facility] Narrative Medical decision making narrative: 28-year-old female presents emergency department for evaluation for persistent nausea vomiting and diarrhea. Patient is approximately 7 weeks . On re-evaluation patient states that she does feel improved. Patient is afebrile with no leukocytosis and hemoglobin of 14. No acute abnormalities on the patient's CMP and while UA did have some red blood cells and white blood cells patient denies any urinary symptoms, urine culture was ordered. Patient was negative for influenza RSV and for COVID. Patient family were updated on the results of the workup they are comfortable the plan for discharge and close follow-up. Differential Diagnosis Differential Diagnosis: COVID, RSV, influenza, UTI, dehydration, morning sickness Vital Signs Vital Signs: Vital Signs Temperature 98.3 F 03/07/24 19:45 Pulse Rate 138 H 03/07/24 19:45 Respiratory Rate 15 03/07/24 19:45 Blood Pressure 104/70 03/07/24 19:45 Pulse Oximetry 100 03/07/24 19:45 Temperature 100.1 F H 03/07/24 23:01 Pulse Rate 83 03/07/24 23:01 Respiratory Rate 20 03/07/24 23:01 Blood Pressure 99/68 L 03/07/24 23:01 Pulse Oximetry 99 03/07/24 23:01 Lab Data 03/07/24 20:03 03/07/24 20:03 Labs: Lab Results 03/07/24 03/07/24 03/07/24 Range/Units 20:03 20:29 20:31 WBC 8.8 (4.5-10.0) K/mm3 RBC 4.75 (4.2-5.4) M/mm3 Hgb 14.1 (12.0-15.0) g/dL Hct 40.5 (37.0-47.0) % MCV 85.3 (80-100) fl MCH 29.7 (26-34) pg MCHC 34.8 (32-36) g/dl RDW 12.9 (11.5-14.5) % Plt Count 207 (150-375) k/mm3 MPV 10.0 (7.4-10.4) fl Immature Gran % (Auto) Not Reportable Neut % (Auto) Not Reportable Lymph % (Auto) Not Reportable [place] % (Auto) Not Reportable Eos % (Auto) Not Reportable Baso % (Auto) Not Reportable Lymph # (Auto) Not Reportable [place] # (Auto) Not Reportable Eos # (Auto) Not Reportable Baso # (Auto) Not Reportable Abs Immat Gran (auto) Not Reportable Absolute Neuts (auto) Not Reportable Absolute Nucleated RBC Not Reportable Total Counted 100 Neutrophils % (Manual) 87 H (46-73) % Band Neutrophils % 4 (0-6) % Lymphocytes % (Manual) 4.0 L (18-44) % Monocytes % (Manual) 5 (3-9) % Nucleated RBC % Not Reportable Abs Neuts (Manual) 8.00 H (1.7-7.2) K/mm3 Abs Lymphs (Manual) 0.35 L (1.1-4.5) K/mm3 Abs Monocytes (Manual) 0.44 (0.1-0.90) K/mm3 Platelet Estimate Adequate (Adequate) Schistocytes None seen Sodium 134 L (137-145) mmol/L Potassium 3.6 (3.4-5.0) mmol/L Chloride 104 (98-107) mmol/L Carbon Dioxide 19 L (22-30) mmol/L Anion Gap 11 (4-12) mmol/L BUN 13 (7-17) mg/dL Creatinine 0.70 (0.7-1.0) mg/dL Estim Creat Clear Calc 89 ml/min Estimated GFR > 60 (59 - ) Glucose 114 H (65-110) mg/dL Calcium 9.5 (8.4-10.2) mg/dL Total Bilirubin 1.5 H (0.2-1.3) mg/dL AST 24 (14-36) U/L ALT 18 (6-35) U/L Alkaline Phosphatase 51 (38-126) U/L Total Protein 7.0 (6.3-8.2) g/dL Albumin 4.8 (3.5-5.1) g/dL Urine Color Yellow (Yellow) Urine Appearance Cloudy H (Clear) Urine pH 5.5 (5.0-9.0) Ur Specific [place] 1.032 (1.001-1.035) Urine Protein 1+ H (Negative) mg/dL Urine Glucose (UA) Negative (Negative) mg/dL Urine Ketones 4+ H (Negative) mg/dL Ur Blood (Man) Negative (Negative) Urine Nitrate Negative (Negative) Urine Bilirubin Negative (Negative) Urine Urobilinogen 1.0 (<2.0) mg/dL Leukocyte Esterase Rfl Negative (Negative) KIMBERLY/UL Urine RBC 3-5 H (0-2) /hpf Urine WBC 6-10 H (0-3) /hpf Ur Squamous Epith Cells Moderate (Few) /hpf Urine Bacteria Rare /hpf Urine Casts 0-2 POC Urine HCG, Qual Positive (Negative) Influenza A (RT-PCR) Negative (Negative) Influenza B (RT-PCR) Negative (Negative) RSV (RT-PCR) Negative (Negative) SARS-CoV-2 RNA (RT-PCR) Negative (Negative) Discharge Plan Discharge Clinical Impression: Nausea vomiting and diarrhea Patient Disposition: Home, Self-Care Condition: Stable Instructions: Antibiotic Form, Clear Liquid Diet (ED), Acute Nausea and Vomiting (ED) Additional Instructions: Zofran as needed for nausea control. Clear liquid diet for the next 1-3 days. Advance to a bland diet as tolerated. Continue have close follow-up with OB Gyne. If you have any worsening symptoms then please call or return to the emergency department. Patient Language: Belgian Prescriptions: New ondansetron 4 mg tablet,disintegrating 4 mg PO Q8H PRN (Reason: nausea and vomiting) Qty: 14 0RF No Action DHA 200 mg capsule PO Follow-up/Referrals: Kuldip Arredondo MD [Primary Care Provider] -
[2024-03-07 20:09] LABS: Hematocrit 40.5 % (37.0-47.0); Hemoglobin 14.1 g/dL (12.0-15.0); Mean Corpuscular HGB Conc 34.8 g/dl (32-36); Mean Corpuscular Hemoglobin 29.7 pg (26-34); Mean Corpuscular Volume 85.3 fl (80-100); Platelet Count Result 207 k/mm3 (150-375); Red Blood Count 4.75 M/mm3 (4.2-5.4); Red Cell Distribution Width 12.9 % (11.5-14.5); White Blood Count 8.8 K/mm3 (4.5-10.0)
[2024-03-07 20:25] LABS: Alanine Aminotransferase 18 U/L (6-35); Albumin Level 4.8 g/dL (3.5-5.1); Alkaline Phosphatase 51 U/L (38-126); Anion Gap 11 mmol/L (4-12); Aspartate Amino Transferase 24 U/L (14-36); Bilirubin,Total 1.5 mg/dL (0.2-1.3); Blood Urea Nitrogen 13 mg/dL (7-17); Calcium 9.5 mg/dL (8.4-10.2); Carbon Dioxide 19 mmol/L (22-30); Chloride 104 mmol/L (98-107); Estimated CRCL calculation 89 ml/min; Estimated Glomerular Filt Rate > 60; Glucose 114 mg/dL (65-110); Potassium 3.6 mmol/L (3.4-5.0); Sodium 134 mmol/L (137-145)
[2024-03-07 20:27] LABS: Band Neutrophils Percent 4 % (0-6); Lymphocytes Absolute Manual 0.35 K/mm3 (1.1-4.5); Monocytes Absolute Manual 0.44 K/mm3 (0.1-0.90); Monocytes Percent Manual 5 % (3-9); Neutrophils Percent Manual 87 % (46-73); Platelet Estimate Adequate (Adequate); Total Cells Counted 100
[2024-03-07 20:28] LABS: Schistocytes None Seen
[2024-03-07 20:33] LABS: BEDSIDEPREGUCG Positive (Negative)
[2024-03-07 20:40] LABS: Add Urine Microscopic? YES; Appearance Urine Cloudy (Clear); Bacteria Urine Rare /hpf; Bilirubin Urine Negative (Negative); Blood Urine Negative (Negative); Color Urine Yellow (Yellow); Glucose Urine UA Negative (Negative); Ketones Urine 4+ mg/dL (Negative); Leukocyte Esterase Ur Negative LEU/UL (Negative); Nitrate Urine Negative (Negative); Non Pathogenic Casts 0-2; Protein Urine 1+ mg/dL (Negative); Specific Grav Ur 1.032 (1.001-1.035); Squamous Epithelial Cell Urine Moderate /hpf (Few); pH Urine 5.5 (5.0-9.0)
[2024-03-07 20:45] LABS: Influenza A QL RT-PCR Negative (Negative); Influenza B QL RT-PCR Negative (Negative); RSV RNA, RT-PCR Negative (Negative); SARS-CoV-2 RNA PCR Negative (Negative)
[2024-03-07 23:01] VITALS: BP 99/68; PULSE 83; RESP 20; TEMP 37.8; O2SAT 99
== END 2024-03-07 23:09 | disposition home or self-care (01) ==
PROVIDERS: Emergency Provider Emergency Medicine; PCP Family Medicine
DX: O21.0 Mild hyperemesis gravidarum (principal); Z3A.01 Less than 8 weeks gestation of pregnancy; R19.7 Diarrhea, unspecified
CPT/HCPCS: 36415; 80053; 81001; 81025; 85025; 87086; 87637; 96361; 96374; 96376; 99284; J2405; J7030

== ENCOUNTER 2024-05-08 08:48 | Emergency (ER) | payer BC, SELFPAY ==
[2024-05-08 09:06] LABS: EDSTREPNEGPOS1 Negative (Negative)
[2024-05-08 10:17] VITALS: BP 108/69; PULSE 92; RESP 16; TEMP 36.6; O2SAT 100
--- NOTE | 2024-05-08 11:38 | ED.URI ---
HPI - URI/Sore Throat General Chief Complaint: Upper Respiratory Infection Stated Complaint: Sore Throat/Congestion Time Seen by Provider: 05/08/24 09:31 History of Present Illness HPI Narrative: 29 year old female 16 weeks presents with complaints of sore throat 2 days with some congestion. 2 year old daughter at home tested positive for strep and rsv last week. Denies fever body aches chills n/v/d sob MD elicited complaint: sore throat and nasal congestion Related Data Home Medications ?Medication ?Instructions ?Recorded ?Confirmed ?Last Taken ?Type docosahexaenoic acid 200 mg 200 mg PO DAILY 07/16/23 05/08/24 Unknown History capsule ( DHA) Allergies Allergy/AdvReac Type Severity Reaction Status Date / Time No Known Allergies Allergy Mild Verified 05/08/24 08:53 Review of Systems Review of Systems: All systems reviewed & are unremarkable except as noted in HPI and below Eyes: Eyes: Reports as per HPI ENT: Reports as per HPI Cardiovascular: Cardiovascular: Reports as per HPI Respiratory: Respiratory: Reports as per HPI Genitourinary: Genitourinary: Reports as per HPI Musculoskeletal: Musculoskeletal: Reports as per HPI Integumentary/Breasts: Skin/Breast: Reports as per HPI Neurologic: Reports as per HPI Psychiatric: Psychiatric: Reports as per HPI Endocrine: Endocrine: Reports as per HPI Hematologic/Lymphatic: Hematologic/Lymphatic: Reports as per HPI Allergic/Immunologic: Allergic/Immunologic: Reports as per HPI PMF Past Medical History Medical History BMI 22.0-22.9, adult BMI 20.0-20.9, adult Family History Family History Father Hypertension Grandparent Family history of malignant neoplasm of breast Mother No problems noted. Sibling No problems noted. Social History Social History (Updated 04/21/24 @ 17:14 by CRISTAL Patterson) Smoking status: Never smoker Second hand tobacco smoke exposure: No Alcohol intake: never Substance use: never Substance use type: does not use Do You Feel Safe in your Home?: Yes Lack of Transportation: No Lack of Food: Never True Current Housing: I Have Housing Concerned About Future Housing: No Difficulty Paying Gas/Electric Bills: No Difficulty Paying for Meds: No Currently Unemployed: No Education: Bachelor's Degree Difficulty w/ Childcare or Family Care: No Living arrangements: with family Additional living arrangements comments: Occupation/Education: occupation 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 Gender identity (if verbalized by the patient): Female Sexual Orientation (if Verbalized by the Patient): Straight or Heterosexual Spiritual care concerns: No Exam Const: General: cooperative, healthy appearing, comfortable, no acute distress and well developed Orientation/consciousness: patient oriented x3 HENMT: Head: normal to inspection Ears: TM's normal bilaterally Throat: uvula midline and abnormal tonsil bilateral erythema and exudates Eyes: General: appearance normal, both eyes and all related structures Resp: Effort & Inspection: normal respiratory effort and able to speak in complete sentences Auscultation: clear to auscultation bilaterally Cardio: Rate: regular rate Rhythm: regular rhythm Heart sounds: S1 normal heart sound present and S2 normal heart sound present Skin: General skin exam: normal color Neuro: General: patient oriented x3 Cognition (Neuro): normal cognition Speech: normal speech Psych: Mental Status: mental status grossly normal Course Course Level of Care: Express Care Visit Vital Signs Vital signs: Vital Signs Temperature 98 F 05/08/24 10:17 Pulse Rate 92 05/08/24 10:17 Respiratory Rate 16 05/08/24 10:17 Blood Pressure 108/69 05/08/24 10:17 Pulse Oximetry 100 05/08/24 10:17 Temperature 98 F 05/08/24 10:17 Pulse Rate 92 05/08/24 10:17 Respiratory Rate 16 05/08/24 10:17 Blood Pressure 108/69 05/08/24 10:17 Pulse Oximetry 100 05/08/24 10:17 MDM - URI/Sore Throat MDM Narrative Medical decision making narrative: 29-year-old female presents today with 2 days complaint of sore throat. Denies fever body aches chills. Does have sick contacts including a 2-year-old daughter was positive RSV and strep. Differentials Include but not limited to as below. Strep negative culture will be sent. Patient aware symptoms could be viral but due to close contact with strep and being 16 weeks will treat with amoxicillin 500 mg twice a day for 10 days. Discussed symptomatic treatment. Return with concerns to ER with any severe recurrent symptoms. Differential Diagnosis Differential diagnosis: Likely upper respiratory infection, sinusitis, viral infection and pharyngitis Medical Records Attestation: I reviewed the patient's medical records. Lab Data Attestation: I reviewed the patient's lab results. Labs: Lab Results 05/08/24 Range/Units 09:04 POC Grp A Strep Screen Negative (Negative) Discharge Plan Discharge Clinical Impression: Pharyngitis Qualifiers: Pharyngitis/tonsillitis etiology: unspecified etiology Qualified Code(s): J02.9 - Acute pharyngitis, unspecified Patient Disposition: Home, Self-Care Condition: Stable Instructions: Antibiotic Form, Pharyngitis (ED) Additional Instructions: Your strep was negative today but I am sending you home with amoxicillin due to exposure to strep and being . Patient Language: French Prescriptions: New amoxicillin 500 mg capsule 500 mg PO Q12H 10 Days Qty: 20 0RF No Action DHA 200 mg capsule 200 mg PO DAILY Follow-up/Referrals: Kuldip Arredondo MD [Primary Care Provider] - Time of Disposition: 09:36
== END 2024-05-08 09:39 | disposition home or self-care (01) ==
PROVIDERS: Emergency Provider Nurse Practitioner Family; PCP Family Medicine
DX: O26.892 Other specified pregnancy related conditions, second trimester (principal); J02.9 Acute pharyngitis, unspecified; Z3A.16 16 weeks gestation of pregnancy
CPT/HCPCS: 87081; 87880; 99213; G0463

== ENCOUNTER 2024-10-21 02:59 | Inpatient (IN) | payer BC, SELFPAY ==
[2024-10-20 16:00] VITALS: BP 93/60; PULSE 78; RESP 16; TEMP 36.7; O2SAT 98
[2024-10-21] VITALS (178 sets, daily range): BP systolic 81–135; BP diastolic 43–81; PULSE 57–143; RESP 16–18; TEMP 36.6–37.6; O2SAT 89–100; BMI 26.4
--- OUTSIDE RECORDS SUMMARY | 2024-10-21 04:05 | XMS_ITS | Continuity of Care Document ---
Author Organization [facility] Address [address] [facility] [address] [place] [address] Phone Care Team Providers Care Salvage Determiner Name Role Phone Jade Nath Unavailable Unavailable Advance Directives Directive Yes / No Effective Date File Name No Information Encounters Encounter Description Practice Location Reason(s) For Visit Diagnoses Date Provider Providers Copied on Encounter [facility], [id number] [place] [address] [address], [place], [place], [id number], [place] tel:[phone] [facility] No Information Mar-2 5-200 3 Pham Hansen. [address] , [address], [place], [address], [place]. tel:[phone] Family History Family Member Type Diagnosis Age At Onset No Information Payers Payer name Insurance type Covered green party ID Authoriza tion(s) No Information Social History Type Description Quantity Date Captured Comments Sex Female Smoking Status No Information Chief Complaint And Reason For Visit No Information Reason For Referral Reason For Referral No Information History Of Present Illness Encounter Date Complaint History Of Prese nt Illness No Information Functional Status Date Functional Assessmen t No Information Instructions Date Instruction Additional Infor mation No Information Assessments Type Assessment Date No Information Patient Care Teams Name Effective Dates (start - stop) Status Members No Information
[2024-10-21 04:14] LABS: Hematocrit 37.5 % (37.0-47.0); Hemoglobin 11.8 g/dL (12.0-15.0); Immature Granulocyte Percent A 0.6 % (0-0.5); Lymphocytes Absolute Auto 2.08 K/mm3 (0.9-3.2); Mean Corpuscular HGB Conc 31.5 g/dl (32-36); Mean Corpuscular Hemoglobin 28.5 pg (26-34); Mean Corpuscular Volume 90.6 fl (80-100); Nucleated Red Blood Cells Absolute Auto 0.000 K/mm3 (0.0-0.012); Nucleated Red Blood Cells Perc 0.0 % (0.0-0.2); Platelet Count Result 248 k/mm3 (150-375); Red Blood Count 4.14 M/mm3 (4.2-5.4); White Blood Count 12.4 K/mm3 (4.5-10.0)
--- NOTE | 2024-10-21 04:29 | LDADM ---
This patient, Yane Mccoy, was admitted to Labor/Delivery/Recovery 105 on 10/21/24 at 02:59. Plans for labor, pain management and were discussed with patient. Patient/family oriented to hospital policies and general routines including ID bracelet, bed and alarms, visiting hours, pain management, procedures, bathroom and other care routines, personal items, smoking policy, room service/diet and guest tray routines, infant security routines, and visiting hours. Patient/Family are encouraged to report perceived risks to care and to ask questions if they do not understand what they are told or what they should do. See OBIX for further documentation.
[2024-10-21 05:06] LABS: Syphilis IgG/IgM Antibody Non-Reactive (Nonreactive)
[2024-10-21] MEDS: LACTATED RINGERS 1,000 ML 125 ML IV CONT ×2 (05:55→08:39)
[2024-10-21] MEDS: OXYTOCIN 30 UNITS/NS 500 ML 30 UNITS/500 ML BAG IV CONT (05:55)
--- NOTE | 2024-10-21 08:19 | WPDANESEPP ---
Anes - Eval Pre Procedure Procedure: Labor epidural Date/Time: 10/21/24 08:19 Surgeon: Cesar Preop Diagnosis: pain during labor Pre Op Diagnosis: Contractions Patient Data Age: 29 Gender: F Height: 1.63 m Weight: 70 kg Last Vital Signs Temp 36.9 C 10/21/24 08:00 Pulse 86 10/21/24 08:16 BP 110/65 10/21/24 08:16 Pulse Ox 98 10/21/24 08:19 O2 Del Method Room Air 10/21/24 04:32 Allergies Allergy/AdvReac Type Severity Reaction Status Date / Time No Known Allergies Allergy Mild Verified 10/21/24 04:27 Home Medications ?Medication ?Instructions ?Recorded ?Confirmed ?Type docosahexaenoic acid 200 mg 200 mg PO DAILY 07/16/23 10/21/24 History capsule ( DHA) famotidine 20 mg tablet (Pepcid) 20 mg PO DAILY 08/12/24 10/21/24 History docusate sodium 50 mg capsule 50 mg PO DAILY 08/26/24 10/21/24 History (Colace Clear) ferrous sulfate 325 mg (65 mg 325 mg PO DAILY 08/26/24 10/21/24 History iron) tablet Laboratory Tests 10/21/24 04:08 WBC 12.4 H K/mm3 (4.5-10.0) RBC 4.14 L M/mm3 (4.2-5.4) Hgb 11.8 L g/dL (12.0-15.0) Hct 37.5 % (37.0-47.0) MCV 90.6 fl (80-100) MCH 28.5 pg (26-34) MCHC 31.5 L g/dl (32-36) RDW 15.4 H % (11.5-14.5) Plt Count 248 k/mm3 (150-375) MPV 10.9 H fl (7.4-10.4) Immature Gran % (Auto) 0.6 H % (0-0.5) Neut % (Auto) 75.5 H % (45.5-73.1) Lymph % (Auto) 16.7 L % (18.3-44.2) [place] % (Auto) 6.4 % (2.6-8.5) Eos % (Auto) 0.6 % (0-4.4) Baso % (Auto) 0.2 % (0.2-1.2) Lymph # (Auto) 2.08 K/mm3 (0.9-3.2) [place] # (Auto) 0.8 H K/mm3 (0.1-0.6) Eos # (Auto) 0.1 K/mm3 (0-0.3) Baso # (Auto) 0.0 K/mm3 (0.0-0.1) Abs Immat Gran (auto) 0.07 H K/mm3 (0.00-0.031) Absolute Neuts (auto) 9.4 H K/mm3 (1.3-6.7) Absolute Nucleated RBC 0.000 K/mm3 (0.0-0.012) Nucleated RBC % 0.0 % (0.0-0.2) Syphilis IgG/IgM Ab Non-reactive (Nonreactive) Blood Type A Positive Antibody Screen Negative Patient hx anesthesia problems: none Family hx anesthesia problems: none Results Review: All pre-operative results and documents have been reviewed as part of the pre-operative evaluation. [facility] Past Medical History Medical History BMI 22.0-22.9, adult BMI 20.0-20.9, adult Family History Family History Father Hypertension Grandparent Family history of malignant neoplasm of breast Mother No problems noted. Sibling No problems noted. Social History Social History Smoking status: Never smoker Second hand tobacco smoke exposure: No Alcohol intake: never Substance use: never Substance use type: does not use Do You Feel Safe in your Home?: Yes Lack of Transportation: No Lack of Food: Never True Current Housing: I Have Housing Concerned About Future Housing: No Difficulty Paying Gas/Electric Bills: No Difficulty Paying for Meds: No Currently Unemployed: No Education: Bachelor's Degree Difficulty w/ Childcare or Family Care: No Living arrangements: with family Additional living arrangements comments: Occupation/Education: occupation 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
--- NOTE | 2024-10-21 12:15 | WPDHPUPDATE1 ---
History and Physical Update Update Date/Time: 10/21/24 12:15 History and Physical has been reviewed, including an updated exam of the patient. There are NO changes in the patient's condition. Risks, benefits, and alternatives have been discussed and questions answered. Patient agrees to proceed with procedure.
--- NOTE | 2024-10-21 12:15 | PM.OBPRVD ---
OB - Vaginal Delivery Note Procedure Delivery date: 10/21/24 Delivery augmentation: Rupture of Membranes Delivery monitor: External FHT and External Uterine Route of delivery: Episiotomy description: None Laceration Description: None Specimen: No Quantitative Blood Loss (ml): 300 Anesthesia type: Epidural Disposition: Floor Complications: No immediate complications Narrative: Patient prepped and draped in usual manner for this procedure. Maternal expulsive efforts readily delivered vertex, nuchal cord was noted and clamped and cut. Rest of baby was delivered without difficulty. Placenta delivered without issue and intact. Cervix vagina vulva were inspected with no lacerations or tears. Uterus was well contracted with no significant bleeding. At this point the procedure was considered terminated with immediate postoperative condition mother baby both excellent. [place] Baby Gestational Age by Date: 39 Infant gender: Female Weight (pounds): 9 Weight (ounces): 0 presentation: vertex Placenta delivery description: Spontaneous Cord Vessel Description: 3 Vessels, Nuchal Cord and Clamped/Cut score one minute: 8 score five minutes: 9
[2024-10-21] MEDS: OXYTOCIN 30 UNITS/NS 500 ML 30 UNITS/500 ML BAG 125 UNITS IV CONT (12:37)
[2024-10-21] MEDS: WITCH HAZEL 40 PADS 1 PAD TOPICAL ×2 (14:57→17:00)
[2024-10-21] MEDS: BENZOCAINE 20% AER SPR (*SP) 56 GM CAN 1 SPRAY TOPICAL (17:00)
[2024-10-21] MEDS: ACETAMINOPHEN 325 MG TABLET 650 MG PO (20:35)
[2024-10-21] MEDS: IBUPROFEN 600 MG TABLET PO (23:52)
[2024-10-22 04:43] VITALS: BP 106/67; PULSE 56; PULSE 59; O2SAT 98
[2024-10-22 04:45] VITALS: RESP 18; TEMP 37.1
[2024-10-22 04:53] LABS: Hematocrit 36.5 % (37.0-47.0); Hemoglobin 11.6 g/dL (12.0-15.0)
[2024-10-22] MEDS: ACETAMINOPHEN 325 MG TABLET 650 MG PO (08:46)
[2024-10-22] MEDS: DOCUSATE SODIUM 100 MG CAPSULE PO (08:48)
[2024-10-22] MEDS: MULTIVIT/MIN/PREN/FOL AC/IRON TABLET 1 TAB PO (08:48)
[2024-10-22 08:55] VITALS: BP 102/73; PULSE 81; PULSE 84; PULSE 88; RESP 16; TEMP 36.6; O2SAT 99
--- NOTE | 2024-10-22 09:44 | PM.OBDSVD ---
DS: Admitting Diagnosis Discharge Date 10/23/2024 Admitting Diagnosis DS: Discharge Diagnosis Discharge Diagnosis (1) , delivered: Code(s): O80 - Encounter for full-term uncomplicated delivery Status: Acute OB - DS: Summary OB Procedures : None OB Procedures Intrapartum: Spontaneous Vag Delivery OB Procedures: : None Peripartum Data Laceration Description: None Episiotomy description: None Time Spent with Patient Time attestation: Total time spent providing and/or coordinating discharge services: DS: Data Data Completed and Pending Labs on day of discharge: Labs from last 24 hours 10/22/24 04:48 Hgb 11.6 L Hct 36.5 L Discharge Plan Discharge Discharging Clinician: Jonatan Quiroz Patient Disposition: Home Activity: as tolerated Diet: as tolerated Patient Instructions: Antibiotic Form Patient Language: Georgian Stand Alone Forms: General Discharge Information Follow-up/Referrals: Alisha Guerrero MD [Physician] - 4 Weeks Discharge Medications: New ibuprofen 600 mg Tablet 600 mg PO Q6H PRN (Reason: Cramping) Qty: 30 0RF Continued Colace Clear 50 mg capsule 50 mg PO DAILY ferrous sulfate 325 mg (65 mg iron) tablet 325 mg PO DAILY DHA 200 mg capsule 200 mg PO DAILY famotidine [Pepcid] 20 mg tablet 20 mg PO DAILY Date of admission: 10/21/24 02:59 Primary Care Provider: Kuldip Arredondo Admitting Provider: Alisha Guerrero Attending physician on admission: Alisha Guerrero Condition: Stable
--- NOTE | 2024-10-22 10:33 | WPDANLDPN2 ---
Anes-Prog Note L&D Date/Time: 10/22/24 10:33 Comfortable throughout: labor and delivery Neuraxial method: epidural Epidural/Spinal procedure site: clean & non-tender Neuro status: Neuro function grossly intact. Cardiovascular status: normal Respiratory status: normal Airway patency: baseline Mental status: baseline Post-Op hydration status: normal Vital Signs: Last Vital Signs Temp 97.9 F 10/22/24 08:55 Pulse 84 10/22/24 08:55 Resp 16 10/22/24 08:55 BP 102/73 10/22/24 08:55 Pulse Ox 99 10/22/24 08:55 O2 Del Method Room Air 10/21/24 21:15 Pain score (VAS): 0/10 I/O: Intake & Output 10/21/24 10/22/24 10/22/24 23:59 07:59 15:59 Intake Total 500 Balance 500 Post-procedural complaints: none Patient feedback: Patient satisfied with anesthetic care.
[2024-10-22 12:34] VITALS: PULSE 38; O2SAT 94
[2024-10-22 12:35] VITALS: BP 112/56; PULSE 31; PULSE 60; PULSE 63; RESP 18; TEMP 36.4; O2SAT 100; O2SAT 89
--- NOTE | 2024-10-22 15:04 | PC.NURSE ---
Report given to Carmelina Mishra RN.
--- NOTE | 2024-10-22 15:25 | OBPPTRN ---
Patient transferred to post room #290 via wheelchair. Support person present. Oriented to unit, room, information board, rooming in, admission packet and security measures. Patient verbalizes understanding.
--- NOTE | 2024-10-22 15:32 | PC.NURSE ---
pt. transferred to OB 2nd floor at 1325, Carmelina Mishra RN assuming care of pt.
--- NOTE | 2024-10-22 15:43 | PC.NURSE ---
Introductions were made, then consulted with patient to assess needs related to . Mother led the conversation with her?plans to feed?her infant and the?experience so far. Mother plans to pump and bottle feed . Instructions given on cleaning, care, usage, that there should be no pain, pumping schedule for milk production, collection, and storage of human milk. Patient was assessed for correct placement, flange size, to pump for comfort and nipple stretching/stimulation for adequate milk production every 3 hours (8 times in 24 hours) 1-2 times at night. Parents are encouraged to record the pumping schedule on the feeding sheet.?Mother voiced understanding of the education shared along with mom/baby guide and the pump measurement, flange fit handout for additional resource information. Reported to the Primary RN.
[2024-10-22] MEDS: IBUPROFEN 600 MG TABLET PO (15:45)
[2024-10-22 19:49] VITALS: BP 103/70; PULSE 69; RESP 18; TEMP 36.7; O2SAT 97
[2024-10-23] MEDS: IBUPROFEN 600 MG TABLET PO (05:11)
[2024-10-23 09:35] VITALS: BP 108/70; PULSE 71; RESP 18; TEMP 37.3; O2SAT 99
[2024-10-23] MEDS: MULTIVIT/MIN/PREN/FOL AC/IRON TABLET 1 TAB PO (09:40)
[2024-10-23] MEDS: DOCUSATE SODIUM 100 MG CAPSULE PO (09:40)
[2024-10-24 15:53] VITALS: BP 101/64; PULSE 72; RESP 18; TEMP 36.9; O2SAT 98
== END 2024-10-23 13:47 | disposition home or self-care (01) | DRG 807 ==
LOC: ANHLDR 04:21 → ANHOBPP 10-22 09:46 → ANHLDR 10-26 13:53 → ANHOB2 10-26 13:53 → ANHOBPP 10-26 13:53
PROVIDERS: Admitting Provider Obstetrics & Gynecology; PCP Family Medicine; Visit Provider Obstetrics & Gynecology
DX: O69.81X0 Labor and delivery complicated by cord around neck, without compression, not applicable or unspecified (principal); Z37.0 Single live birth; Z3A.39 39 weeks gestation of pregnancy
CPT/HCPCS: 36415; 85014; 85018; 85025; 86593; 86850; 86900; 86901; A9270; J2590; J2795; J7120